=== PATIENT | female | born 1945 | race Caucasian/White ===

== ENCOUNTER 2024-03-25 06:36 | Day surgery (SDC) | payer MEDICARE, OTHER ==
[2024-03-25] MEDS ORDERED: Depo-Medrol 40 MG/ML IM ONE (06:37)
[2024-03-25] MEDS ORDERED: Xylocaine-Mpf 2% 5 Ml Vial IJ ONE (06:37)
[2024-03-25] MEDS ORDERED: DIPRIVAN 200 MG/20 ML IV ONE (08:47)
--- NOTE | 2024-03-25 11:10 | XRAY ---
Indication: Bilateral L2-L4 MBB. Intraoperative fluoroscopy provided for 20 seconds. Single digital spot image submitted for interpretation demonstrates posterior needle tips projecting over expected left and right L2-L4 nerve roots. Correlate with intraoperative findings/report.
--- NOTE | 2024-03-25 11:33 | XRAY ---
20 seconds of fluoroscopy was used in surgery for a bilateral L4-S1 MBB.
== END 2024-03-25 09:08 | disposition home or self-care (01) ==
LOC: SDC-PAIN 06:36
PROVIDERS: ATTEND Psychiatry & Neurology Pain Medicine
DX: M47.816 Spondylosis without myelopathy or radiculopathy, lumbar region (principal); R73.03 Prediabetes
CPT/HCPCS: 64493; 64494; 72020; 77002; 82947; J2704